=== PATIENT | female | born 1970 | race Caucasian/White ===

== ENCOUNTER 2016-05-16 12:27 | Outpatient (CLI) ==
--- NOTE | 2016-05-16 12:56 | DI ---
EXAM: RIGHT HIP, 2 VIEWS HISTORY: Hip pain. FINDINGS: Normal bone density. Hip joint has normal articular cartilage width. No fracture or dis location. Sacroiliac joints within normal limits. No specific soft tissue finding. IMPRESSION: Findings within normal limits radiographically.
--- NOTE | 2016-05-16 12:57 | DI ---
EXAM: Left hip two-view HISTORY: Pain COMPARISON: None FINDINGS: No fracture or dislocation. Small marginal osteophyte formation about the femoral head and small subchondral cystic change in the acetabulum.. Hip joint space is maintained Mild enthesop athy about the greater and lesser trochanter. IMPERSSION: 1. No fracture or dislocation 2. Mild osteoarthritis
== END 2016-05-16 12:28 | disposition home or self-care (01) ==
LOC: RAD 12:27
PROVIDERS: ATTEND Internal Medicine
DX: M25.551 Pain in right hip (principal); M25.552 Pain in left hip

== ENCOUNTER 2016-09-18 11:45 | Outpatient (CLI) ==
[2016-09-18 12:22] LABS: BASOPHILS % (AUTO) 0.4 % (0.0-3.0); EOSINOPHILS # (AUTO) 0.2 K/ul (0.0-0.7); EOSINOPHILS % (AUTO) 2.8 % (0.0-7.0); HEMATOCRIT 41.1 % (37.0-47.0); HEMOGLOBIN 13.7 g/dl (12.0-16.0); IMMATURE GRANULOCYTE % (AUTO) 0.1 % (0.0-5.0); LYMPHOCYTES # (AUTO) 1.8 K/uL (0.60-3.4); LYMPHOCYTES % (AUTO) 22.3 (10.0-50.0); MEAN CORPUSCULAR HEMOGLOBIN 28.7 pg (27.0-31.0); MEAN CORPUSCULAR HGB CONC 33.3 (31.8-35.4); MEAN CORPUSCULAR VOLUME 86.2 fl (81.0-99.0); MONOCYTES # (AUTO) 0.4 K/uL (0.4-2.0); MONOCYTES % (AUTO) 4.4 (0-10); NEUTROPHILS # (AUTO) 5.5 K/ul (2.0-6.9); PLATELET COUNT 300 10^3/uL (140-440); RED BLOOD COUNT 4.77 10^6/ul (4.20-5.40)
--- NOTE | 2016-09-18 12:38 | DI ---
EXAM: Five views of the right knee HISTORY: Right knee pain. COMPARISON: None FINDINGS: There is mild medial and lateral compartmental narrowing with osteophyte formation. The p atella femoral compartment demonstrates mild narrowing and osteophyte formation. There is no lytic or blastic lesion. There is no displaced fracture or dislocation. The soft tissues are unremarkabl e. 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
[2016-09-18 12:43] LABS: ALANINE AMINOTRANSFERASE 15 U/L (12-78); ALBUMIN/GLOBULIN RATIO 1.14; ALKALINE PHOSPHATASE 81 U/L (42-98); ANION GAP 9.7; ASPARTATE AMINO TRANSFERASE 18 U/L (15-37); BILIRUBIN,TOTAL 0.42 mg/dL (0.00-1.20); BLOOD UREA NITROGEN 11 mg/dL (7-18); BUN/CREATININE RATIO 11.82; CALCIUM 9.8 mg/dL (8.2-10.2); CARBON DIOXIDE 28 mmol/L (21-32); CHLORIDE 106 mmol/L (98-107); CREATININE 0.93 mg/dL (0.60-1.30); GLUCOSE 88 mg/dL (70-110); POTASSIUM 3.7 mmol/L (3.5-5.10); SODIUM 140 mmol/L (136-145); TOTAL PROTEIN 7.5 g/dL (6.4-8.2)
== END 2016-09-18 11:46 | disposition home or self-care (01) ==
LOC: RAD 11:45
PROVIDERS: ATTEND Emergency Medicine
DX: Z51.81 Encounter for therapeutic drug level monitoring (principal); Z79.899 Other long term (current) drug therapy; Z86.69 Personal history of other diseases of the nervous system and sense organs; M25.561 Pain in right knee
CPT/HCPCS: 36415; 80053; 80185; 85025

== ENCOUNTER 2016-09-19 13:56 | Outpatient (CLI) | payer OTHER ==
--- NOTE | 2016-09-19 15:33 | MRI ---
EXAM: MRI brain without IV contrast. DATE: 19 Sep 2016. HISTORY: Headaches, seizures. TECHNIQUE: Sagittal T1W, axial T2W, axial FLAIR, axial T1W, axial DWI, and coronal T2W GRE sequence s of the brain were obtained using 1.2 Izabel magnet. No IV contrast. COMPARISON: MRI brain 07/23/2015. FINDINGS: Right middle cranial fossa T2W bright, T1W dark, 5.3 x 4.1 x 3.5 cm surgical cavity is ob served. Evidence of previous anterior right temporal lobe, right hippocampal head, amygdala, right insular ribbon, and portion of the right external capsule (inferiorly) appears similar to previous M RI. The lateral ventricles, third ventricle, Sylvian fissures, and many cerebral sulci are mildly promi nent due to involutional change. No midline shift, mass effect or abnormal extra-axial fluid collect ion is apparent. No acute infarct, acute hemorrhage or neoplasm is identified. Small, confluent ri m of T2W/FLAIR hyperintensity is observed in the white matter abutting each lateral ventricle. Smal l number of 2-10 mm, T2W/FLAIR bright foci are scattered within the arroyo radiata, centrum semioval e and subcortical white matter similar to previous MRI. Region of right inferior frontal gyrus subc ortical white matter IR hyperintensity suggests old infarct with encephalomalacia. T2W bright, FLAI R/T1W dark in the right frontal lobe (near the anterior horn right lateral ventricle, right parietal lobe subcortical white matter (inferolaterally), left frontal centrum semiovale) are likely old inf arcts. The alejo - white matter differentiation is normal. The 7th/8th cranial nerve complexes, cere bellopontine angles, brainstem, and visible cervical spinal cord are normal. There is no cerebellar tonsillar ectopia. The pituitary gland is small in size. Corpus callosum is normal in size and co nfiguration. Right vertebral artery is dominant. Flow voids are present in the major intracranial arteries and in the dural venous sinuses. No aneurysm, AVM or dural venous sinus thrombosis is appa rent. No orbit abnormality is identified. A few inferior right mastoid air cells have T2W bright, T1W intermediate signal. Left mastoid air cells are unremarkable. There is no acute sinusitis. No neck mass or lymphadenopathy is detected. Slight thickening of the inner table of the frontal bone appears benign. No calvarial neoplasm or acute fracture is evident. IMPRESSIONS: 1. No acute infarct, hemorrhage, suspicious mass or hydrocephalus. 2. S/P anterior right temporal lobe resection. Stable surgical cavity. 3. Mild supratentorial small vessel disease. 4. 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 5. Benign hyperostosis frontalis interna (minor). 6. Minimal right mastoid air cell disease. 7. Small pituitary gland, no pituitary lesion.
== END 2016-09-19 13:57 | disposition home or self-care (01) ==
LOC: RAD 13:56
PROVIDERS: ATTEND Emergency Medicine
DX: R51 Headache (principal); Z86.69 Personal history of other diseases of the nervous system and sense organs

== ENCOUNTER 2017-05-14 12:00 | Outpatient (CLI) ==
--- NOTE | 2017-05-14 16:47 | MRI ---
EXAM: MRI left shoulder without contrast. HISTORY: Left shoulder pain. Decreased range of motion. Pain 3 weeks. No left shoulder surgery re ported. TECHNIQUE: Using a local coil on a high field strength magnet multiplanar multisequence magnet reson ance imaging was attempted of the left shoulder without intravenous or intra-articular gadolinium con trast. Overall examination is of limited diagnostic quality secondary to extensive motion degradatio n on multiple imaging sequences despite repeat imaging.. FINDINGS: I do not have prior radiographs of the left shoulder available for comparison at the time of this dictation. A Type I I acromion. Coracoacromial ligament/arch intact without thickening. There is a moderate to marked degree of left acromioclavicular joint degenerative arthrosis. Deltoid musculature within no rmal limit in signal intensity. Trace fluid subacromial/subdeltoid bursa. Muscle bulk of the rotator cuff shows fatty infiltration. Diffuse supraspinatus tendinosis over the insertion and critical zone. Poorly characterized partial thickness articular sided tearing. Loss o f cuff thickness at least 50%. There is some fluid-filled rim rent portion of tear over the insertio n measuring approximate 8 x 6 mm. Bursal sided fraying. Posterior intact infraspinatus tendon fibers as well as teres minor tendon fibers. Anterior intact subscapularis tendon fibers. The long head of the biceps tendon shows intact fibers located in expected position within the bicipital groove. The left humeral head within normal limit in morphology. Remodeling with some degenerative cyst form ation over the greater tuberosity. No left glenohumeral joint centered subchondral bone marrow edema or bone erosions. Mild left glenohumeral joint osteoarthrosis. Left glenohumeral joint effusion.. IMPRESSION: Examination of limited diagnostic quality secondary to extensive motion degradation on m ultiple imaging sequences despite repeat imaging. Moderate to marked left acromioclavicular joint degenerative arthrosis. Diffuse supraspinatus tendinosis over the insertion and critical zone with poorly characterized suspe cted partial thickness articular sided tearing and overall loss of cuff thickness at least 50%. Some fluid-filled rim rent portion of tear over the insertion measuring approximate 8 x 6 mm. Bursal devonte ed fraying. I do not see a definitive full-thickness tear component. Trace fluid subacromial/subdelt oid bursa may reflect an overlying degree bursitis and/or be sequela prior shoulder injection. A ful l-thickness communicating tear component could have this appearance. Mild left glenohumeral joint osteoarthrosis. Left glenohumeral joint effusion. Recommendation is obtainment and correlation with plain film radiographs of the left shoulder as none are available for comparison at the time of this dictation.
== END 2017-05-14 12:01 | disposition home or self-care (01) ==
LOC: RAD 12:00
PROVIDERS: ATTEND Internal Medicine
DX: M25.512 Pain in left shoulder (principal)

== ENCOUNTER 2017-07-27 11:01 | Outpatient (CLI) ==
--- NOTE | 2017-07-27 13:27 | MRI ---
EXAM: MRI of the right shoulder without contrast COMPARISON: None available. HISTORY: Right shoulder pain. No known injury. TECHNIQUE: Multiplanar noncontrast MR images of the right shoulder were acquired using a 1.5 Izabel m agnet. The submitted images are moderately limited by patient motion artifact and several sequences were repeated. FINDINGS: Marked supraspinatus and subscapularis as well as moderate infraspinatus tendinosis. Ther e is a near full-thickness articular surface tear of the anterior insertional fibers of the supraspin atus measuring 0.9 x 0.9 cm with some thin residual intact bursal surface fibers without a definite f ull-thickness tear. Near full-thickness tear of the distal subscapularis. Small amount of fluid in the subacromial/subdeltoid bursa. Limited assessment of the glenoid labrum on this non arthrographic, motion limited study. Hyperinten se signal throughout the posterosuperior labrum which may represent artifact though underlying tear i s not excluded. Moderate glenohumeral joint osteoarthrosis. There is a moderate sized glenohumeral joint effusion with synovitis and small loose bodies within the joint. The long head of the biceps is medially subluxed within its proximal bicipital groove segment with te ndinosis/partial tear and tenosynovitis. Marked hypertrophic degenerative changes of the acromioclavicular joint. No evidence of an os acromi jayna or abnormal widening of the acromioclavicular joint space. Mild diffuse muscle atrophy. Moderat e to severe atrophy of the teres minor. IMPRESSION: 1. Marked rotator cuff tendinosis. Near full-thickness tear of the insertional fibers of the supras pinatus and subscapularis without a discrete full-thickness tear or tendon retraction as described. 2. Minimal fluid in the subacromial/subdeltoid bursa. 3. Moderate hypertrophic degenerative changes of the acromioclavicular joint. Moderate degenerative changes of the glenohumeral joint. 4. Tendinosis/partial tear and tenosynovitis of the long head biceps with medial subluxation of the tendon within the bicipital groove. 5. Moderate glenohumeral joint effusion with nonspecific synovitis and small loose bodies. Joint as piration could be considered if clinically warranted. 6. Hyperintense signal involving the posterosuperior glenoid labrum which may be artifactual in natu re on this non arthrographic study though underlying labral tear is not excluded. Correlate clinical ly.
== END 2017-07-27 11:02 | disposition home or self-care (01) ==
LOC: RAD 11:01
PROVIDERS: ATTEND Internal Medicine
DX: M25.511 Pain in right shoulder (principal)

== ENCOUNTER 2017-08-04 10:00 | Outpatient (RCR) ==
--- NOTE | 2017-07-15 11:04 | RS.OPPTEV2 ---
Date of Note: 07/14/17 Visit #: 1 Date of Evaluation: 07/14/17 Payer Source: MEDICARE Surgery Performed?: No Treatment Diagnosis: incomplete tear of L rotator cuff History of Condition/Mechanism of Injury:: pt reports pain began in May 2017. pt did not have any definite injury that she is aware of. Prior Level of Function.....Patient was independent with: ADL's, Self Care, Caregiving, Ambulation/Mobility, Community Integration/Access Functional Limitations: Sleep, ADL's, Reaching, Pushing, Pulling, Lifting, Carrying Current Subjective/complaints:: pt states she has been having increased L shld pain since May 2017. 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 Treatment Side (optional): Left *Precautions: n/a Medical History Medical History: Arthritis, Cancer (brain cancer ) Medical History Comments:: R foot fx, R hand fx Surgical History Comments:: Brain surgery 1998 due to brain cancer, eye surgery 1987 Smoking Status: Never smoker Diagnostic Testing/Imaging:: MRI L shld: limited quality due to extensive motion degradation. Did show mod to marked L acromioclavicular joint deg arthrosis, supraspinatus tendinosis, partial thickness tear. Hx Home Medications: pt unsure of home medications Patient's Goals: decrease L shld pain. Pain Assessment - Pain Description Pain Location: L shld Pain Description: Aching Current Pain Intensity: 8/10 Other Comments regarding Pain:: pain increases with active ROM Functional Outcome Measure UE Functional Index: 38 (52%) - G Codes & Severity Modifier G Codes & Modifier: carrying, moving and handling objects current CK. carrying , moving and handling objects goal CI Source of G Code score: UE functional index Observation - Observation Posture: Forward Head, Rounded Shoulders, Increased Thoracic Kyphosis Handedness: Right Gait - Gait Pattern General Gait Pattern Observation: No Deviations/Normal General Range of Motion: RUE WFL's. BLE WFL's Muscle Strength: RUE 5/5. BLE 5/5 Shoulder ROM: Right WFL's Shoulder Muscle Strength: Right WFL's - Left Shoulder ROM Left Shoulder Flexion: 130 (AAROM) Left Shoulder Abduction: 120 (AAROM) Left Shoulder External Rotation: 42 (AAROM) Left Shoulder ROM Limitations: Soft Tissue Tightness, Muscle Weakness, Pain - Left Shoulder Strength Left Shoulder Flexion: 3 Fair Left Shoulder Extension: 3 Fair Left Shoulder Abduction: 3- Fair- Left Shoulder Adduction: 4- Good- Left Shoulder External Rotation: 3- Fair- Left Shoulder Internal Rotation: 3+ Fair+ - Special Tests Shoulder Empty Can (Supraspinatus) Test: Positive Left Palpation Palpation Findings: Tenderness, Trigger Point, Muscle Guarding Comments:: pt presents with tenderness, muscle guarding in area of biceps tendon , as well as in area of supraspinatus and medial border of scapula. Sensation - Sensation Right Upper Extremity: Intact/Normal Left Upper Extremity: Intact/Normal Right Lower Extremity: Intact/Normal Left Lower Extremity: Intact/Normal Balance - Sitting Balance Static Sitting Balance: Normal Dynamic Sitting Balance: Normal - Standing Balance Static Standing Balance: Normal Dynamic Standing Balance: Normal - Heat/Cryotherapy Treatment: Cryotherapy Comments:: L shld Interventions - Exercise/Activities/Manual Therapy Exercises/Activities: pt performed pendulum ex, scapular retraction, shld shrugs x 5-10 reps Manual Therapy: n/a HOME EXERCISE PROGRAM: pt given written HEP including pendulum ex, scapular retraction, shld shrugs. gently Upper trap stretch - Charges Timed Code Treatment Minutes: 48 Total Treatment Time: 60 Procedures billed for this date of service:: eval low cold pack EVALUATION COMPLEXITY LEVEL EVALUATION COMPLEXITY LEVEL: HISTORY: Low (OA, L ROT cuff tear), EXAM OF BODY SYSTEMS: Low (musc, other), CLINICAL PRESENTATION: Low (stable), CLINICAL DECISION MAKING: Medium Assessment Assessment: pt presents with L shld pain, with incomplete tear of L rotator cuff. 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 Goal to be met by: 07/31/17 Goal #2: Improved UE functional index improved to 65/80 Goal to be met by: 07/31/17 Goal #3: pt with improved L shld ROM WFL's with decreased pain Goal to be met by: 07/31/17 Goal #4: pt report ability to perform ADL's and household activites independently Goal to be met by: 07/31/17 Plan - Treatment to be Provided Procedures: Therapeutic Exercises, Therapeutic Activity, Manual Therapy, Patient Education Modalities: Ultrasound/Phonophoresis (pulsed US only), Cryotherapy, Hot Packs - Treatment Plan Frequency: 2 X week Duration: 3 weeks ORDER # VISITS AND/OR THROUGH DATE: 07/31/17 - Treatment Code (1) Incomplete tear of left rotator cuff Code(s): M75.112 - INCOMPLETE ROTATR-CUFF TEAR/RUPTR OF L SHOULDER, NOT TRAUMA (2) Pain in joint, shoulder region Code(s): M25.519 - PAIN IN UNSPECIFIED SHOULDER Qualifiers: Laterality: left Qualified Code(s): M25.512 - Pain in left shoulder (3) Muscle weakness Code(s): M62.81 - MUSCLE WEAKNESS (GENERALIZED)
--- NOTE | 2017-07-17 15:24 | RS.OPPTDN ---
Subjective Date of Note: 07/17/17 Visit #: 2 Date of Evaluation: 07/14/17 Payer Source: MEDICARE Treatment Diagnosis: incomplete tear of L rotator cuff Current Subjective/complaints:: Patient c/c is R shoulder pain right now. She says she wants us to work on it, but explained she was only evaluated for the L. She says her L shoulder is not really hurting unless she reaches up or grooming her hair. She reports obtaining an appt with Dr. Garcia while here for treatment on July 20 to address the R shoulder. *Precautions: n/a Pain Assessment - Pain Description Pain Location: Mostly the R shoulder, but L shoulder with actions above head and along the lateral portion of the L upper arm. - Treatment Modality: Ultrasound Parameters/Method Applied: continuous @ 1.5 w/cm2 x 10 mins to the L shoulder and along mid deltoid Patient Position: Sitting - Heat/Cryotherapy Treatment: Hot Pack (15 mins to the L shoulder prior to u/s, cold pack x 10 mins after therex in sitting) Interventions - Exercise/Activities/Manual Therapy Exercises/Activities: PROM for the L shoulder all dir. Manual isometrics 2x5 for shoulder dir. 1# wand for bilateral shoulder flexion and chest presses, shoulder shrugs and scap adduction at EOB. Instructed patient on how to make cold pack for home as she admitted forgetting the measurement of water to alcohol. Discussed HEP as well. Total minutes of Exercise: 22 Manual Therapy: n/a HOME EXERCISE PROGRAM: pt given written HEP including pendulum ex, scapular retraction, shld shrugs. gently Upper trap stretch - Charges Timed Code Treatment Minutes: 32 Total Treatment Time: 67 Procedures billed for this date of service:: hp, u/s, ex Assessment: Patient experiencing only mild discomfort to the L shouler, but c/c is R shoulder at this time. It is probably associated with patient compensating for the L shoulder pain and now using the R more allowing the L to be less mobile. She c/o severe R shoulder pain and needing to see the MD and requests therapy for it. Patient does guard throughout PROM to the L UE today as well as difficulty with all isometrics limited by weakness and pain. Patient may benefit from receiving treatment to the L UE to improve ROM, pain, and strength. Patient Education: Body/Joint mechanics, Home Exercise Program, Education of Plan of Care Short Term Goals Goal #1: pt rate pain <6/10 L shld Goal to be met by: 07/24/17 Goal #2: Improved ROM L shld flex 140, abd 130, ER, 45 Goal to be met by: 07/24/17 Goal #3: pt able to put jacket on without assist Goal to be met by: 07/24/17 (10% limitation (soft tissue)) Goal #4: . Residential Goals Goal #1: pt independent with HEP. Goal to be met by: 07/31/17 Goal #2: Improved UE functional index improved to 65/80 Goal to be met by: 07/31/17 Goal #3: pt with improved L shld ROM WFL's with decreased pain Goal to be met by: 07/31/17 Goal #4: pt report ability to perform ADL's and household activites independently Goal to be met by: 07/31/17 Plan PLAN OF CARE EXPIRES ON:: 07/31/17 ORDER # VISITS AND/OR THROUGH DATE: 07/31/17 PLAN: Patient to continue for modalities and therex
--- NOTE | 2017-07-27 13:27 | RS.CXNS ---
Date of scheduled appointment: 07/27/17 Type: No Show Reason for Cancel/NS: Patient believes that her appt is tomorrow and did not show today. We have made attempts to contact her to reschedule her appt.
--- NOTE | 2017-08-03 14:21 | RS.OPPTDN ---
Subjective Date of Note: 08/03/17 Visit #: 4 Date of Evaluation: 07/14/17 Payer Source: MEDICARE Treatment Diagnosis: incomplete tear of L rotator cuff Current Subjective/complaints:: Patient says her L shoulder pain is elevated right now. She says her pain goes from the L to the R shoulder and says she is using ice at home for both. She reports performing HEP to the R shoulder as well. *Precautions: n/a Pain Assessment - Pain Description Pain Location: R and L shoulder (generally throughout the shoulder including posteriorally) - Treatment Modality: Ultrasound Parameters/Method Applied: Continuous @ 1.5 w/cm2 x 6 mins to the L shoulder ( ant/lat/post), then ending with pulsed @ 20% 0.6 w/cm2 x 5 mins Patient Position: Sitting - Heat/Cryotherapy Treatment: Hot Pack (15 mins to the L shoulder in sitting) Interventions - Exercise/Activities/Manual Therapy Exercises/Activities: PROM for the L shoulder all dir. Manual isometrics 2x5 for shoulder dir. 1# wand for bilateral shoulder flexion and chest presses in sitting x 8, shoulder shrugs and scap adduction at EOB. Red tband for postural pullbacks x 10. Patient ended with pulleys x 10 reps. Reviewed HeP and education on diagnosis and POC. Discussed working on the R shoulder possibly after L is completed. Total minutes of Exercise: 22 Manual Therapy: n/a HOME EXERCISE PROGRAM: pt given written HEP including pendulum ex, scapular retraction, shld shrugs. gently Upper trap stretch - Charges Timed Code Treatment Minutes: 33 Total Treatment Time: 48 Procedures billed for this date of service:: hp, u/s, ex Assessment: Patient demo full passive flexion and WFL for ER/IR/ABD, but limited herself due to pain level. She is able to provide only slight resistance in all motions as above due to pain level and patient drawing back, but able to yaneli resisted shoulder flexion. Pain varies from L shoulder to the R shoulder depending on activity. Patient Education: Education of diagnosis, Home Exercise Program, Education of Plan of Care Patient demonstrates compliance with HEP?: Yes Short Term Goals Goal #1: pt rate pain <6/10 L shld Goal to be met by: 07/24/17 Goal #2: Improved ROM L shld flex 140, abd 130, ER, 45 Goal to be met by: 07/24/17 Progress towards Goal:: Progressing Goal #3: pt able to put jacket on without assist Goal to be met by: 07/24/17 (10% limitation (soft tissue)) Progress towards Goal:: Progressing Comments:: Patient required assistance at last session, but not today Goal #4: . Longterm Goals Goal #1: pt independent with HEP. Goal to be met by: 07/31/17 Progress towards goal: Progressing Goal #2: Improved UE functional index improved to 65/80 Goal to be met by: 07/31/17 Goal #3: pt with improved L shld ROM WFL's with decreased pain Goal to be met by: 07/31/17 Goal #4: pt report ability to perform ADL's and household activites independently Goal to be met by: 07/31/17 Plan PLAN OF CARE EXPIRES ON:: 07/31/17 ORDER # VISITS AND/OR THROUGH DATE: 07/31/17 PLAN: Patient to continue x 2 more session
--- NOTE | 2017-08-03 14:24 | RS.OPPTDN ---
Subjective Date of Note: 07/29/17 Visit #: 3 Date of Evaluation: 07/14/17 Payer Source: MEDICARE Treatment Diagnosis: incomplete tear of L rotator cuff Current Subjective/complaints:: Patient c/o R shoulder pain today, which is more than the L. She says she can hardly move the R arm, especially reaching. She assumes she will have therapy for the R shoulder today, but explained her order is only for the L. She has not received results from her MRI for the R. *Precautions: n/a Pain Assessment - Pain Description Pain Location: R shoulder more than L - Treatment Modality: Ultrasound Parameters/Method Applied: Continuous @ 1.5 w/cm2 x 8 mins to the L posterior shoulder and mid deltoid. Pulsed @ 0.6 w/cm2 20% x 3 mins to the same area. Patient Position: Sitting - Heat/Cryotherapy Treatment: Hot Pack (15 mins to the L shoulder in sitting) Interventions - Exercise/Activities/Manual Therapy Exercises/Activities: PROM for the L shoulder all dir. Manual isometrics 2x5 for shoulder dir. 1# wand for bilateral shoulder flexion and chest presses in supine x 8, shoulder shrugs and scap adduction at EOB. Patient ended with pulleys x 10 reps. Reviewed HeP and education on diagnosis and POC. Encouraged heat/ice. Total minutes of Exercise: 18 Manual Therapy: n/a HOME EXERCISE PROGRAM: pt given written HEP including pendulum ex, scapular retraction, shld shrugs. gently Upper trap stretch - Charges Timed Code Treatment Minutes: 26 Total Treatment Time: 46 Procedures billed for this date of service:: hp, u/s, ex Assessment: Patient with moderate pain level to both shoulders and c/c is R shoulder presently. Patient explained we need to work on L shoulder (for her current order) then may consider discussing with her MD about adding the R. Patient yaneli PROM limiting herself with IR/ER and ABD at times and guarding with eccentric flexion. Patient has difficulty yaneli shoulder hanging at her side and with pulleys today. Patient Education: Body/Joint mechanics, Home Exercise Program, Education of Plan of Care Patient demonstrates compliance with HEP?: Yes Short Term Goals Goal #1: pt rate pain <6/10 L shld Goal to be met by: 07/24/17 Goal #2: Improved ROM L shld flex 140, abd 130, ER, 45 Goal to be met by: 07/24/17 Progress towards Goal:: Progressing Goal #3: pt able to put jacket on without assist Goal to be met by: 07/24/17 (10% limitation (soft tissue)) Goal #4: . Senior Living Goals Goal #1: pt independent with HEP. Goal to be met by: 07/31/17 Progress towards goal: Progressing Goal #2: Improved UE functional index improved to 65/80 Goal to be met by: 07/31/17 Goal #3: pt with improved L shld ROM WFL's with decreased pain Goal to be met by: 07/31/17 Goal #4: pt report ability to perform ADL's and household activites independently Goal to be met by: 07/31/17 Plan PLAN OF CARE EXPIRES ON:: 07/31/17 ORDER # VISITS AND/OR THROUGH DATE: 07/31/17 PLAN: Continue x 3 more sessions per order
--- NOTE | 2017-08-04 12:13 | RS.OPPTDN ---
Subjective Date of Note: 08/04/17 Visit #: 5 Date of Evaluation: 07/14/17 Payer Source: MEDICARE Treatment Diagnosis: incomplete tear of L rotator cuff Current Subjective/complaints:: Patient c/o pain to both shoulders today, but varies and is goes back and forth between the two. She says she has purchased a heat wrap for both shoulders and is using ice to both as well. She says she does not feel that her L shoulder is improving. She admits needing someone to shut her microwave door because she cannot do it with the L arm. *Precautions: n/a Pain Assessment - Pain Description Pain Location: both shoulders ant/pos - Treatment Modality: Ultrasound Parameters/Method Applied: Continuous @ 5 mins 1.5 w/cm2, Pulsed 20% @ 0.6 w/ cm2 x 5 mins to the L shoulder Patient Position: Sitting - Heat/Cryotherapy Treatment: Hot Pack (15 mins to the L shoulder in sitting) Interventions - Exercise/Activities/Manual Therapy Exercises/Activities: PROM for the L shoulder all dir. Manual isometrics 2x5 for shoulder dir except for extension due to patient c/o pain. 1# wand for bilateral shoulder flexion and chest presses in supine x 8, shoulder shrugs and scap adduction at EOB. Red tband for scap retraction x 10. Patient ended with pulleys x 10 reps. Reviewed HeP and education on diagnosis and POC. Reassessed UE Functional Index. Total minutes of Exercise: 18 Manual Therapy: n/a HOME EXERCISE PROGRAM: pt given written HEP including pendulum ex, scapular retraction, shld shrugs. gently Upper trap stretch - Charges Timed Code Treatment Minutes: 28 Total Treatment Time: 43 Procedures billed for this date of service:: hp, u/s, ex Assessment: Patient's reassessment improved from 38/80 to 55/80, however, she voices intermittent improvement that moves from the L to the R shoulder. She asks often about working on the R shoulder too, but she has not seen the ortho regarding the R shoulder. She demo improved Active and PROM for the L shoulder today to WFL, but this also varies on her pain level. Patient Education: Education of diagnosis, Body/Joint mechanics, Home Exercise Program, Education of Plan of Care Patient demonstrates compliance with HEP?: Yes Short Term Goals Goal #1: pt rate pain <6/10 L shld Goal to be met by: 07/24/17 Progress towards Goal:: Met Comments:: on average Goal #2: Improved ROM L shld flex 140, abd 130, ER, 45 Goal to be met by: 07/24/17 Progress towards Goal:: Partially Met Comments:: ABD limited to 120 today, ER to 50 Goal #3: pt able to put jacket on without assist Goal to be met by: 07/24/17 (10% limitation (soft tissue)) Progress towards Goal:: Progressing Comments:: but also limited because of the R shoulder 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 Goal to be met by: 08/04/17 Progress towards goal: Met Goal #2: Improved UE functional index improved to 65/80 Goal to be met by: 08/04/17 Progress towards goal: Progressing Comments: 55 Goal #3: pt with improved L shld ROM WFL's with decreased pain Goal to be met by: 08/04/17 Progress towards goal: Progressing Goal #4: pt report ability to perform ADL's and household activites independently Goal to be met by: 08/04/17 Progress towards goal: Progressing Plan PLAN OF CARE EXPIRES ON:: 08/04/17 ORDER # VISITS AND/OR THROUGH DATE: 08/04/17 PLAN: Patient has completed order. Patient wants to follow up with ortho regarding the R shoulder now.
== END 2017-08-08 ==
PROVIDERS: ATTEND Orthopaedic Surgery
DX: M75.112 Incomplete rotator cuff tear or rupture of left shoulder, not specified as traumatic (principal)

== ENCOUNTER 2017-10-08 10:00 | Outpatient (RCR) ==
--- NOTE | 2017-09-23 09:13 | RS.OPPTEV2 ---
Date of Note: 09/22/17 Visit #: 1 Date of Evaluation: 09/22/17 Payer Source: MEDICARE Surgery Performed?: No Treatment Diagnosis: Right shoulder pain, shoulder stiffness, RTC involvement History of Condition/Mechanism of Injury:: Patient reports having right shoulder pain for several months. States she has not had an injury. States her left shoulder hurts as well. Prior Level of Function.....Patient was independent with: ADL's, Self Care, Caregiving, Ambulation/Mobility, Community Integration/Access Functional Limitations: Sleep, Self Care, ADL's, Reaching, Pushing, Pulling, Lifting, Carrying Current Subjective/complaints:: Patient reports right shoulder pain at rest or with movement. States the shoulder hurts when it hangs at her side when walking. Reports difficulty fastening her seatbelt. She received an injection recently and states it helped a little, but has worn off. Reports difficulty performing selfcare and ADL's due to limited shoulder AROM and pain. She attended therapy earlier this year for the left shoulder. States the right shoulder has always been worse. Betzaida states she did not remember to bring the disc with her MRI for her appointment with the [facility]opaedic clinic when she was seen to address the right shoulder pain. Treatment Side (optional): Right *Precautions: n/a Medical History Medical History: Arthritis, Cancer (brain cancer ) Medical History Comments:: R foot fx, R hand fx Surgical History Comments:: Brain surgery 1998 due to brain cancer, eye surgery 1987 Smoking Status: Never smoker Diagnostic Testing/Imaging:: Report from MRI of right shoulder on 07/27/17 is lengthy and shows many issues with OA, tears of the supraspinatus and subscapularis tendons and involvement of the long head of the biceps tendon. The full report is in the EMR. Hx Home Medications: Requip,aspirin, Zonegran, ferrous sulfate, levothyroxin, simvastatin Patient's Goals: Her goal is to get some relief of pain in the right shoulder. Pain Assessment - Pain Description Pain Location: right shoulder Current Pain Intensity: 9/10 Worst Pain Intensity: 9/10 Functional Outcome Measure - G Codes & Severity Modifier G Codes & Modifier: selfcare current CL. selfcare goal CK Source of G Code score: Based on patient's presentation in the department. Patient with difficulty scoring the UE FOM, even with assistance, due to mild cognitive impairment. Observation - Observation Posture: Forward Head, Rounded Shoulders, Increased Thoracic Kyphosis Handedness: Ambidextrous - Left Shoulder ROM Comments: Left shoulder AROM: flexion 110 degrees, ABD 85 degrees, ER WFL's, IR 75% of functional range with pain. - Right Shoulder ROM Comments: Right shoulder AROM: flexion 100 degrees, abduction 80 degrees, ER 52 degrees, IR 40 degrees. Reports pain and shows facial grimacing with all right shoulder ROM. PROM just as limited into flexion. Tolerates PROM into abduction to 95-100 degrees. ER and IR PROM just as limited and painful as AROM. - Left Shoulder Strength Comments: 4-/5 in available range throughout left shoulder. - Right Shoulder Strength Comments: 3+ to 4-/5 throughout right shoulder, with exception of adduction 4+/ 5. Pain with all MMT. - Special Tests Shoulder Empty Can (Supraspinatus) Test: Positive Right Shoulder Speed's Sign Test: Positive Right Shoulder Sampson-Lang Impingement Test: Positive Right Palpation Comments:: Patient reports tenderness throughout the right shoulder. She withdrawals from touch when palpating the posterior aspect of the right shoulder. Also reports tenderness over the long head of the biceps tendon. Sensation - Sensation Right Upper Extremity: Intact/Normal Left Upper Extremity: Intact/Normal - Treatment Modality: Ultrasound Parameters/Method Applied: 1.5 w/cm2 X 10 mins continuous to the right shoulder. Patient Position: Sitting Interventions - Exercise/Activities/Manual Therapy Exercises/Activities: Discussed pendulum exercises. Advised her to avoid reaching over shoulder height and to also avoid lifting anything heavy with the right UE. Manual Therapy: n/a HOME EXERCISE PROGRAM: pendulum - Charges Timed Code Treatment Minutes: 10 mins Total Treatment Time: 48 mins Procedures billed for this date of service:: RADHA Romero, EVALUATION COMPLEXITY LEVEL EVALUATION COMPLEXITY LEVEL: HISTORY: Medium (Left shoulder limitations, HX brain surgery with some cognitive impairments), EXAM OF BODY SYSTEMS: Low ( Limited ability with selfcare and ADL's.), CLINICAL PRESENTATION: Medium, CLINICAL DECISION MAKING: Medium Assessment Assessment: Patient presents to therapy with a diagnosis of an incomplete RTC tear of the right shoulder. She reports right shoulder pain and demonstrates significant limitations in AROM and strength. Because of this, she is limited in her ability to perform selfcare and ADL's. Her MRI showed a variety of issues and the goal of therapy may just be to gain some relief of pain, education, and gain a little more functional AROM. Patient Education: Education of diagnosis, Body/Joint mechanics, Home Exercise Program, Activity Modification, Education of Plan of Care Rehab Potential: Fair (Right shoulder with extensive RTC and biceps tendon issues.) Short Term Goals Goal #1: Right shoulder pain decreased to <7/10. Goal to be met by: 10/06/17 Goal #2: Right shoulder flexion AROM to 90 degrees. Goal to be met by: 10/06/17 Goal #3: Pt independent and compliant in HEP. 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 Goal to be met by: 10/17/17 Goal #2: Improved UE functional index improved to equal to/less than 59% impairment. Goal to be met by: 10/17/17 Goal #3: Pt to sleep through the night without interruption from R shoulder pain. Goal to be met by: 10/17/17 Goal #4: Right shoulder ROM WFL's to perform selfcare and ADL's. Goal to be met by: 10/17/17 Plan - Treatment to be Provided Procedures: Therapeutic Exercises, Therapeutic Activity, Manual Therapy, Patient Education Modalities: Ultrasound/Phonophoresis (pulsed US only), Cryotherapy, Hot Packs - Treatment Plan Frequency: 2 X week Duration: 3 weeks ORDER # VISITS AND/OR THROUGH DATE: 10/17/17 - Treatment Code (1) Shoulder pain Code(s): M25.519 - PAIN IN UNSPECIFIED SHOULDER Qualifiers: Chronicity: acute Laterality: right Qualified Code(s): M25.511 - Pain in right shoulder (2) Shoulder stiffness Qualifiers: Laterality: right Qualified Code(s): M25.611 - Stiffness of right shoulder , not elsewhere classified (3) Incomplete tear of right rotator cuff Code(s): M75.111 - INCOMPLETE ROTATR-CUFF TEAR/RUPTR OF R SHOULDER, NOT TRAUMA Comments: M75.111
--- NOTE | 2017-09-24 11:01 | RS.OPPTDN ---
Subjective Date of Note: 09/24/17 Visit #: 2 Date of Evaluation: 09/22/17 Payer Source: MEDICARE Treatment Diagnosis: Right shoulder pain, shoulder stiffness, RTC involvement Current Subjective/complaints:: The R shoulder pain is dependent upon the position of the R UE. *Precautions: n/a Pain Assessment - Pain Description Pain Location: R shoulder Pain Description: Throbbing, Aching Current Pain Intensity: 5 at rest Worst Pain Intensity: 9 with AROM in short ROM - Treatment Modality: Ultrasound Parameters/Method Applied: Pulsed US x 10 mins. to R shoulder @ 1.0 w/cm 2 . Patient Position: Sitting - Heat/Cryotherapy Treatment: Hot Pack (20 mins. prior to US) Interventions - Exercise/Activities/Manual Therapy Exercises/Activities: 20 mins. isometrics,PROM for shoulder elevation to 90 ,IR /ER .Shoulder shrugs /circles forward/backward. Total minutes of Exercise: 20 Manual Therapy: n/a Total minutes of Manual Therapy: 0 HOME EXERCISE PROGRAM: pendulum ,GENTLE isometrics - Charges Timed Code Treatment Minutes: 30 Total Treatment Time: 50 Procedures billed for this date of service:: hp,US,ex Assessment: Patient has elevated pain with attempting shoulder elevation, crepitus present with pasive rotation .Cautioned patient to avoid strenuous tasks using the R UE . Patient Education: Education of diagnosis, Body/Joint mechanics, Home Exercise Program, Home Safety, Activity Modification, Education of Plan of Care Short Term Goals Goal #1: Right shoulder pain decreased to <7/10. Goal to be met by: 10/06/17 Goal #2: Right shoulder flexion AROM to 90 degrees. Goal to be met by: 10/06/17 Goal #3: Pt independent and compliant in HEP. Goal to be met by: 10/06/17 Goal #4: . Nursing Home Goals Goal #1: Pt knows HEP and to continue ex's to maintain functional level at D/C. Goal to be met by: 10/17/17 Goal #2: Improved UE functional index improved to equal to/less than 59% impairment. Goal to be met by: 10/17/17 Goal #3: Pt to sleep through the night without interruption from R shoulder pain. Goal to be met by: 10/17/17 Goal #4: Right shoulder ROM WFL's to perform selfcare and ADL's. Goal to be met by: 10/17/17 Plan PLAN OF CARE EXPIRES ON:: 10/17/17 ORDER # VISITS AND/OR THROUGH DATE: 10/17/17 PLAN: Cont PT to decrease R shoulder pain ,improve ability for ADL's.
--- NOTE | 2017-09-29 12:00 | RS.OPPTDN ---
Subjective Date of Note: 09/29/17 Visit #: 3 Date of Evaluation: 09/22/17 Payer Source: MEDICARE Treatment Diagnosis: Right shoulder pain, shoulder stiffness, RTC involvement Current Subjective/complaints:: Patient reports her pain is the same today in the R shoulder.She aggravated the R shoulder by pulling herself up into a truck.Reminded patient to not use the R UE for strenuous tasks at this time , due to instability ni the R shoulder. *Precautions: n/a Pain Assessment - Pain Description Pain Location: R shoulder Pain Description: Sharp, Dull, Aching Current Pain Intensity: not rated Other Comments regarding Pain:: dependent upon position of the R UE - Treatment Modality: Ultrasound Parameters/Method Applied: 10 mins. ,pulsed (50 % ) @ 1.0 w/cm2 to R shoulder. Patient Position: Sitting - Heat/Cryotherapy Treatment: Hot Pack (20 mins.prior to US) Interventions - Exercise/Activities/Manual Therapy Exercises/Activities: 20 mins. ,PROM to AAROM for shoulder elevation to 90 ,IR/ ER,abduction .Shoulder shrugs /circles forward/backward.Ended session with pendulum exercises. Total minutes of Exercise: 20 Manual Therapy: n/a Total minutes of Manual Therapy: 0 HOME EXERCISE PROGRAM: pendulum ,GENTLE isometrics each direction - Charges Timed Code Treatment Minutes: 30 Total Treatment Time: 50 Procedures billed for this date of service:: hp,US,ex1 Assessment: Patient tolerates passive motion today with less muscle guarding present.She has sharp,intermittent pain with AAROM,crepitus noted with elevation to approx. 90 degrees,and is also present with returning to rest position .We reiewed safety precautions to protect the R shoulder. Patient Education: Education of diagnosis, Body/Joint mechanics, Home Exercise Program, Home Safety, Activity Modification, Education of Plan of Care Short Term Goals Goal #1: Right shoulder pain decreased to <7/10. Goal to be met by: 10/06/17 Goal #2: Right shoulder flexion AROM to 90 degrees. Goal to be met by: 10/06/17 Goal #3: Pt independent and compliant in HEP. Goal to be met by: 10/06/17 Progress towards Goal:: Progressing Goal #4: . Senior Care Goals Goal #1: Pt knows HEP and to continue ex's to maintain functional level at D/C. Goal to be met by: 10/17/17 Progress towards goal: Progressing Goal #2: Improved UE functional index improved to equal to/less than 59% impairment. Goal to be met by: 10/17/17 Goal #3: Pt to sleep through the night without interruption from R shoulder pain. Goal to be met by: 10/17/17 Progress towards goal: Progressing Goal #4: Right shoulder ROM WFL's to perform selfcare and ADL's. Goal to be met by: 10/17/17 Plan PLAN OF CARE EXPIRES ON:: 10/17/17 ORDER # VISITS AND/OR THROUGH DATE: 10/17/17 PLAN: Continue PT to reduce pain , improve muscle tone in R shoulder for stability.
--- NOTE | 2017-10-01 11:24 | RS.OPPTDN ---
Subjective Date of Note: 10/01/17 Visit #: 4 Date of Evaluation: 09/22/17 Payer Source: MEDICARE Treatment Diagnosis: Right shoulder pain, shoulder stiffness, RTC involvement Current Subjective/complaints:: Reports the shoulder aches at rest,but has sharp pain with active motion. *Precautions: n/a Pain Assessment - Pain Description Pain Location: R shoulder Pain Description: Sharp, Dull, Aching Current Pain Intensity: not rated - Treatment Modality: Ultrasound Parameters/Method Applied: 10 mins. to R shoulder,pulsed mode (50%) , @1.0 w/ cm2. Patient Position: Sitting - Heat/Cryotherapy Treatment: Hot Pack (20 mins. prior to US and exercises) Interventions - Exercise/Activities/Manual Therapy Exercises/Activities: 20 mins. ,PROM to AAROM for R shoulder,beginning with 1 # wand exercises in sitting doing shoulder elevation to ~ 95 degrees x 10 reps , seated chest press x 10 in shortened ROM .Passive ER and IR with R shoulder in abduction @ 45 degrees. Total minutes of Exercise: 20 Manual Therapy: n/a HOME EXERCISE PROGRAM: pendulum ,GENTLE isometrics each direction - Charges Timed Code Treatment Minutes: 30 Total Treatment Time: 50 Procedures billed for this date of service:: hp,US,ex 1 Assessment: Patient tolerates the wand exercises better as it gives more stability with AROM.She fatigues easily and reports aching as the exercises progress.PROM for ER is limited with significant muscle guarding due to crepitus and pain .We discussed to not force any motion that causes pain.She tends to shrug the R shoulder more as she attempts shoulder flexion.We reviewed the precautions ,avoid all heavy lifting tasls. Patient Education: Education of diagnosis, Body/Joint mechanics, Home Exercise Program, Home Safety, Activity Modification, Education of Plan of Care Short Term Goals Goal #1: Right shoulder pain decreased to <7/10. Goal to be met by: 10/06/17 Progress towards Goal:: Progressing Comments:: better at rest or with use of wand for exercises (AAROM ) Goal #2: Right shoulder flexion AROM to 90 degrees. Goal to be met by: 10/06/17 Progress towards Goal:: Progressing Goal #3: Pt independent and compliant in HEP. Goal to be met by: 10/06/17 Progress towards Goal:: Progressing Goal #4: . Nursing Home Goals Goal #1: Pt knows HEP and to continue ex's to maintain functional level at D/C. Goal to be met by: 10/17/17 Progress towards goal: Progressing Goal #2: Improved UE functional index improved to equal to/less than 59% impairment. Goal to be met by: 10/17/17 Goal #3: Pt to sleep through the night without interruption from R shoulder pain. Goal to be met by: 10/17/17 Progress towards goal: Progressing Goal #4: Right shoulder ROM WFL's to perform selfcare and ADL's. Goal to be met by: 10/17/17 Plan PLAN OF CARE EXPIRES ON:: 10/17/17 ORDER # VISITS AND/OR THROUGH DATE: 10/17/17 PLAN: Continue skilled PT to educate the patient for joint protection ,decrease the pain for safer ADL's.
--- NOTE | 2017-10-06 10:56 | RS.OPPTDN ---
Subjective Date of Note: 10/06/17 Visit #: 5 Date of Evaluation: 09/22/17 Payer Source: MEDICARE Treatment Diagnosis: Right shoulder pain, shoulder stiffness, RTC involvement Current Subjective/complaints:: Reports the R shoulder feels better today ,no pain at this time.She is able to demo reaching overhead today with less difficulty. *Precautions: n/a Pain Assessment - Pain Description Pain Location: R shoulder Pain Description: Dull, Aching, Chronic Current Pain Intensity: 0 Worst Pain Intensity: not rated today - Treatment Modality: Ultrasound Parameters/Method Applied: 10 mins. pulsed US to R shoulder @ 1.0 w/cm2 . Patient Position: Sitting (20 mins. prior to US and exercises) - Heat/Cryotherapy Treatment: Hot Pack (20 mis. prior to US and exercises) Interventions - Exercise/Activities/Manual Therapy Exercises/Activities: 25 mins. ,PROM to AAROM for R shoulder,beginning with 1 # wand exercises in sitting doing shoulder elevation to 105 degrees,2 sets x 10 reps ,seated chest press 2 x 10 in shortened ROM .Active ER and IR with R shoulder in neutral position,using wand to assist. Total minutes of Exercise: 25 Manual Therapy: n/a Total minutes of Manual Therapy: 0 HOME EXERCISE PROGRAM: pendulum ,GENTLE isometrics each direction,AAROM using wand for rowing ,shoulder elevation ,IR/ER - Charges Timed Code Treatment Minutes: 35 Total Treatment Time: 55 Procedures billed for this date of service:: hp,US,ex 2 Assessment: Crepitus present with each shoulder motion today ,but less guarded, less sharp pain reported.Reminded patient to avoid heavy lifting,continue HEP in PAIN FREE ROM. Patient Education: Education of diagnosis, Body/Joint mechanics, Home Exercise Program, Home Safety, Activity Modification, Education of Plan of Care Short Term Goals Goal #1: Right shoulder pain decreased to <7/10. Goal to be met by: 10/06/17 Progress towards Goal:: Partially Met Goal #2: Right shoulder flexion AROM to 90 degrees. Goal to be met by: 10/06/17 (inconsistent at this bindu\e) Progress towards Goal:: Partially Met Goal #3: Pt independent and compliant in HEP. Goal to be met by: 10/06/17 Progress towards Goal:: Progressing Goal #4: . Long-Term Goals Goal #1: Pt knows HEP and to continue ex's to maintain functional level at D/C. Goal to be met by: 10/17/17 Progress towards goal: Progressing Goal #2: Improved UE functional index improved to equal to/less than 59% impairment. Goal to be met by: 10/17/17 Goal #3: Pt to sleep through the night without interruption from R shoulder pain. Goal to be met by: 10/17/17 Progress towards goal: Progressing Goal #4: Right shoulder ROM WFL's to perform selfcare and ADL's. Goal to be met by: 10/17/17 Progress towards goal: Progressing Plan PLAN OF CARE EXPIRES ON:: 10/17/17 ORDER # VISITS AND/OR THROUGH DATE: 10/17/17 PLAN: Continue PT to reduce /eliminate R shoulder pain ,strengthen for joint stability.
--- NOTE | 2017-10-08 10:31 | RS.OPPTDN ---
Subjective Date of Note: 10/08/17 Visit #: 6 Date of Evaluation: 09/22/17 Payer Source: MEDICARE Treatment Diagnosis: Right shoulder pain, shoulder stiffness, RTC involvement Current Subjective/complaints:: Patient reports less soreness and pain at rest, but still painful with active motion.She is aware of D/C plan today due to no significant change. *Precautions: n/a Pain Assessment - Pain Description Pain Location: R shoulder Pain Description: Sharp, Dull, Aching Pain Description: sharp with AROM Current Pain Intensity: 4-5 actively Worst Pain Intensity: 8 - Treatment Modality: Ultrasound Parameters/Method Applied: 10 mins. pulsed 50 % to R shoulder @ 1.o w/cm2. Patient Position: Sitting - Heat/Cryotherapy Treatment: Hot Pack (20 mins. prior to US and exercise) Interventions - Exercise/Activities/Manual Therapy Exercises/Activities: 20 mins. ,PROM to AAROM for R shoulder,all directions, HEP and precautions reviewed ,avoid heavy lifting with the R UE. Total minutes of Exercise: 20 Manual Therapy: n/a HOME EXERCISE PROGRAM: pendulum ,GENTLE isometrics each direction,AAROM using wand for rowing ,shoulder elevation ,IR/ER - Charges Timed Code Treatment Minutes: 30 Total Treatment Time: 50 Procedures billed for this date of service:: hp,US,ex Assessment: No significant change since evaluation .She is aware of D/C plan today.Reminded patient to avoid heavy lifting with the R UE due to joint instability.She does report less pain at rest,but no change with AROM. Patient Education: Education of diagnosis, Body/Joint mechanics, Home Exercise Program, Home Safety, Activity Modification, Education of Plan of Care Patient demonstrates compliance with HEP?: Yes Short Term Goals Goal #1: Right shoulder pain decreased to <7/10. Goal to be met by: 10/06/17 Progress towards Goal:: Partially Met Goal #2: Right shoulder flexion AROM to 90 degrees. Goal to be met by: 10/06/17 Progress towards Goal:: Met Goal #3: Pt independent and compliant in HEP. Goal to be met by: 10/06/17 Progress towards Goal:: Progressing Goal #4: . Senior Living Goals Goal #1: Pt knows HEP and to continue ex's to maintain functional level at D/C. Goal to be met by: 10/17/17 Progress towards goal: Partially Met Goal #2: Improved UE functional index improved to equal to/less than 59% impairment. Goal to be met by: 10/17/17 Progress towards goal: No Change Goal #3: Pt to sleep through the night without interruption from R shoulder pain. Goal to be met by: 10/17/17 Progress towards goal: Progressing Goal #4: Right shoulder ROM WFL's to perform selfcare and ADL's. Goal to be met by: 10/17/17 Progress towards goal: No Change Plan PLAN OF CARE EXPIRES ON:: 10/17/17 ORDER # VISITS AND/OR THROUGH DATE: 10/17/17 PLAN: Plan to D/C .
--- NOTE | 2017-10-23 14:27 | RS.OPPTDC ---
Date of Discharge: 10/08/17 Date of Evaluation: 09/22/17 Number of Visits: 6 Treatment Diagnosis: Right shoulder pain, shoulder stiffness, RTC involvement Current Complaints/Gains: Ms. Rajput reports less sorenss and pain at rest. States she continues to have pain with active motion of the right UE. Functional Outcome Measure - G Codes & Severity Modifier G Codes & Modifier: selfcare goal CK. selfcare D/C CL Source of G Code score: based on presentation in department, patient unable to score FOM. Interventions - Exercise/Activities/Manual Therapy Exercises/Activities: NA Manual Therapy: n/a HOME EXERCISE PROGRAM: pendulum ,GENTLE isometrics each direction,AAROM using wand for rowing ,shoulder elevation ,IR/ER - Objective Findings Observations,measurements,etc.: AROM measurements: right shoulder flexion 100 degrees, abduction 80 degrees, ER 52 degrees, IR 40 degrees. All ROM with pain. - Charges Timed Code Treatment Minutes: NA Total Treatment Time: NA Procedures billed for this date of service:: NA Assessment Assessment: Ms. Rajput attend 6 therapy sessions with treatment of modalities and exercises. She reports some decrease in soreness at rest, but she gained no increased functional ROM in the right UE. G codes were based on presentation and she does not appear to have made any progress functionally compared to initial evaluation. Short Term Goals Goal #1: Right shoulder pain decreased to <7/10. Goal to be met by: 10/06/17 Progress towards Goal:: Partially Met Goal #2: Right shoulder flexion AROM to 90 degrees. Goal to be met by: 10/06/17 Progress towards Goal:: Met Goal #3: Pt independent and compliant in HEP. Goal to be met by: 10/06/17 Progress towards Goal:: Progressing Goal #4: . Senior Care Goals Goal #1: Pt knows HEP and to continue ex's to maintain functional level at D/C. Goal to be met by: 10/17/17 Progress towards goal: Partially Met Comments: Pt able to perform some ex's from HEP in available range. Goal #2: Improved UE functional index improved to equal to/less than 59% impairment. Goal to be met by: 10/17/17 Progress towards goal: Not Met Goal #3: Pt to sleep through the night without interruption from R shoulder pain. Goal to be met by: 10/17/17 Progress towards goal: Not Met Goal #4: Right shoulder ROM WFL's to perform selfcare and ADL's. Goal to be met by: 10/17/17 Progress towards goal: Not Met Plan Reason for Discharge:: Lack of Progress
== END 2017-10-08 23:59 ==
PROVIDERS: ATTEND Orthopaedic Surgery
DX: M75.111 Incomplete rotator cuff tear or rupture of right shoulder, not specified as traumatic (principal); M25.511 Pain in right shoulder; M25.611 Stiffness of right shoulder, not elsewhere classified

== ENCOUNTER 2018-01-19 10:36 | Outpatient (POV) | END 2018-01-19 17:00 | LOC: OUTPT 10:36 | PROVIDERS: ATTEND Otolaryngology | DX: H91.90 Unspecified hearing loss, unspecified ear (principal) ==

== ENCOUNTER 2018-09-07 13:00 | Outpatient (RCR) ==
--- NOTE | 2018-08-25 08:56 | RS.OPPTEV2 ---
Date of Note: 08/24/18 Visit #: 1 Number of visits approved by Insurance: n/a Date of Evaluation: 08/24/18 Payer Source: MEDICARE Surgery Performed?: No Treatment Diagnosis: Right shoulder pain, rotator cuff tear, muscle weakness History of Condition/Mechanism of Injury:: pt reports having R shld pain for 3years. pt with no specific injury. pt has received PT in the past for R shld. Prior Level of Function.....Patient was independent with: ADL's, Self Care, Caregiving, Ambulation/Mobility, Community Integration/Access Level of Function: pt independent with ADL's with pain Functional Limitations: Sleep, Self Care, ADL's, Reaching, Pushing, Pulling, Lifting, Carrying Current Subjective/complaints:: pt states that she hopes therapy will help because she doesn't want to have surgery. She reports the R shld hurts with all ROM Treatment Side (optional): Right *Precautions: n/a Medical History Medical History: Arthritis, Cancer (brain cancer ) Medical History Comments:: R foot fx, R hand fx Surgical History Comments:: Brain surgery 1998 due to brain cancer, eye surgery 1987 Smoking Status: Former smoker Hx Home Medications: pt did not bring a list of medicine. Patient's Goals: decrease R shld pain and not have to have surgery. Pain Assessment - Pain Description Pain Location: R shld Pain Description: Sharp, Aching Current Pain Intensity: 0 at rest, 5-6/10 with any ROM Functional Outcome Measure UE Functional Index: 36 - G Codes & Severity Modifier G Codes & Modifier: n/a Source of G Code score: n/a Observation - Observation Inspection: pt with atrophy noted R deltoid. Posture: Forward Head, Rounded Shoulders, Increased Thoracic Kyphosis Handedness: Right Gait - Gait Pattern General Gait Pattern Observation: No Deviations/Normal General Range of Motion: LUE WFL's. BLE WFL's Muscle Strength: LUE 5/5. BLE 5/5 Shoulder ROM: Left WFL's Shoulder Muscle Strength: Left WFL's - Right Shoulder ROM Right Shoulder Flexion: 106 (AAROM 90 AROM) Right Shoulder Abduction: 128 (AAROM) Right Shoulder Internal Rotation: 58 Right Shoulder External Rotation: 54 Right Shoulder ROM Limitations: Soft Tissue Tightness, Muscle Weakness, Pain - Right Shoulder Strength Right Shoulder Flexion: 3- Fair- Right Shoulder Abduction: 3 Fair Right Shoulder Adduction: 3 Fair Right Shoulder External Rotation: 3 Fair Right Shoulder Internal Rotation: 3 Fair - Special Tests Shoulder Empty Can (Supraspinatus) Test: Positive Right Shoulder Yergason's Test: Positive Right Shoulder Speed's Sign Test: Positive Right Acromioclavicular Joint Distraction Test: Positive Right Palpation Palpation Findings: Tenderness, Muscle Guarding Comments:: pt with point tenderness to R AC joint, biceps tendon, supraspinatus with muscle guarding to scapula Sensation - Sensation Right Upper Extremity: Intact/Normal Left Upper Extremity: Intact/Normal Right Lower Extremity: Intact/Normal Left Lower Extremity: Intact/Normal Balance - Sitting Balance Static Sitting Balance: Good Dynamic Sitting Balance: Good - Standing Balance Static Standing Balance: Good Dynamic Standing Balance: Good - Treatment Modality: Ultrasound Parameters/Method Applied: pulsed ultrasound x 7 mins at 1.2 w/cm2 Treatment Area: R shld ac joint Patient Position: Sitting Interventions - Exercise/Activities/Manual Therapy Exercises/Activities: pt performed isometric shld flex, ext, abd, add Manual Therapy: n/a HOME EXERCISE PROGRAM: pt given written HEP including isometric shld flex, ext, abd, add. - Charges Timed Code Treatment Minutes: 51 Total Treatment Time: 59 Procedures billed for this date of service:: dorie mckinley, ultrasound EVALUATION COMPLEXITY LEVEL EVALUATION COMPLEXITY LEVEL: HISTORY: Low, EXAM OF BODY SYSTEMS: Medium, CLINICAL PRESENTATION: Low, CLINICAL DECISION MAKING: Low Assessment Assessment: pt presents with R shld pain with decreased R shld ROM, strength. pt with symptoms suggesting: supraspinatus tear, biceps tendon tear, and AC joint inflammation. Feel pt will benefit from skilled PT for therex for strengthening, and ROM, modalities to decrease inflammation and pain. Patient Education: Home Exercise Program, Education of Plan of Care Rehab Potential: Good Short Term Goals Goal #1: pt independent with initial HEP Goal to be met by: 09/03/18 Goal #2: Right shoulder flexion AROM to 110 degrees, abd AROM 135 Goal to be met by: 09/03/18 Goal #3: Decrease pain with ROM to < 5/10 Goal to be met by: 09/03/18 Goal #4: Improve strenght R shld 3+/5 Goal to be met by: 09/03/18 [facility] Goals Goal #1: pt report able to perform normal household activities w less pain Goal to be met by: 09/17/18 Goal #2: Improve UE functional index to >45 Goal to be met by: 09/17/18 Goal #3: pt with improved posture with decreased scapular anterior rotation Goal to be met by: 09/17/18 Goal #4: Decrease R shld pain < 4/10 Goal to be met by: 09/17/18 Plan - Treatment to be Provided Procedures: Therapeutic Exercises, Therapeutic Activity, Manual Therapy, Patient Education Modalities: Ultrasound/Phonophoresis (pulsed US only), Cryotherapy, Hot Packs - Treatment Plan Frequency: 2 X week Duration: 4 weeks Dates of [facility] Goals: 09/17/18 Expiration date of current Insurance Approval:: n/a - Treatment Code (1) Incomplete tear of right rotator cuff Code(s): M75.111 - INCOMPLETE ROTATR-CUFF TEAR/RUPTR OF R SHOULDER, NOT TRAUMA Qualifiers: Rotator cuff tear trauma status: nontraumatic Qualified Code(s): M75.111 - Incomplete rotator cuff tear or rupture of right shoulder, not specified as traumatic (2) Muscle weakness Code(s): M62.81 - MUSCLE WEAKNESS (GENERALIZED) (3) Pain in joint, shoulder region Code(s): M25.519 - PAIN IN UNSPECIFIED SHOULDER Qualifiers: Laterality: right Qualified Code(s): M25.511 - Pain in right shoulder (4) Shoulder stiffness Qualifiers: Laterality: right Qualified Code(s): M25.611 - Stiffness of right shoulder , not elsewhere classified
--- NOTE | 2018-08-27 16:36 | RS.OPPTDN ---
Subjective Date of Note: 08/27/18 Visit #: 2 Number of visits approved by Insurance: 8 Date of Evaluation: 08/24/18 Payer Source: MEDICARE Treatment Diagnosis: Right shoulder pain, rotator cuff tear, muscle weakness Current Subjective/complaints:: (Patient is 30 mins late for appt. Explained we would abbreviate her session).Patient says she is having a lot of shoulder pain and she hasn't noticed any improvement with u/s yet. She says it hurts to move it in any direction. Reports she does not want to have surgery, so she is hopeful therapy will improve her pain. *Precautions: n/a - Treatment Modality: Ultrasound Parameters/Method Applied: Pulsed @ 20% @ 1.0 w/cm2 x 12 mins to the R shoulder at the supraspinatus tendon and along the mid deltoid Patient Position: Sitting Interventions - Exercise/Activities/Manual Therapy Exercises/Activities: Patient receives PROM to the R UE all directions. Manual isometrics all dir x 5. Performs shoulder shrugs and scapular adduction. Finished with shoulder pulleys x 10 with cues to let the L UE assist the R. Reviewed HeP and diagnosis. Encouraged heat/ice at home for pain control. Total minutes of Exercise: 16 Manual Therapy: n/a HOME EXERCISE PROGRAM: pt given written HEP including isometric shld flex, ext, abd, add. - Charges Timed Code Treatment Minutes: 28 Total Treatment Time: 31 Procedures billed for this date of service:: u/s, ex Assessment: Patient received modified treatment as she was 1/2 hour late. She demo tenderness during light pressure of u/s today and jerky movements during PROM particularly with flex and abd. Soreness also present with pulleys, however, she was able to elevate the R UE to WFL. Patient Education: Education of diagnosis, Body/Joint mechanics, Home Exercise Program, Education of Plan of Care Short Term Goals Goal #1: pt independent with initial HEP Goal to be met by: 09/03/18 Comments:: Educated on and encouraged her to begin Goal #2: Right shoulder flexion AROM to 110 degrees, abd AROM 135 Goal to be met by: 09/03/18 Goal #3: Decrease pain with ROM to < 5/10 Goal to be met by: 09/03/18 Goal #4: Improve strenght R shld 3+/5 Goal to be met by: 09/03/18 [employer] Goals Goal #1: pt report able to perform normal household activities w less pain Goal to be met by: 09/17/18 Goal #2: Improve UE functional index to >45 Goal to be met by: 09/17/18 Goal #3: pt with improved posture with decreased scapular anterior rotation Goal to be met by: 09/17/18 Goal #4: Decrease R shld pain < 4/10 Goal to be met by: 09/17/18 Plan Dates of [facility] [employer] Goals: 09/17/18 Expiration date of current Insurance Approval:: 09/17/18 PLAN: Continue BIW for modalities and therex to the R shoulder to possibly increase mobility and function.
--- NOTE | 2018-08-31 14:29 | RS.OPPTDN ---
Subjective Date of Note: 08/31/18 Visit #: 3 Number of visits approved by Insurance: Reassess at 10th Date of Evaluation: 08/24/18 Payer Source: MEDICARE Treatment Diagnosis: Right shoulder pain, rotator cuff tear, muscle weakness Current Subjective/complaints:: Patient says that she is not feeling any improvement from previous visit, but later admits treatment did lower her pain afterwards for a few hours. She says she had to vacuum her floors for company to come over and caused increased pain to the R shoulder. She says she tries to switch arms, but she is not able to vacuum adequately with the L. *Precautions: n/a - Treatment Modality: Ultrasound Parameters/Method Applied: Pulsed @ 1.2 w/cm2 x 10 mins along the R mid deltoid and anterior shoulder joint Patient Position: Sitting - Heat/Cryotherapy Treatment: Hot Pack (15 mins to the R shoulder in sitting) Interventions - Exercise/Activities/Manual Therapy Exercises/Activities: Patient receives PROM to the R UE all directions. Manual isometrics all dir 2 x 5. Performs shoulder shrugs and scapular adduction. 1# wand for bilateral shoulder flexion x 10, red tband for scap retraction using 1 # wand both in sitting. 1# dumbell for wrist motions and elbow flexion/ extension x 10. Reviewed HeP and diagnosis. Encouraged heat/ice at home for pain control. Total minutes of Exercise: 22 Manual Therapy: n/a HOME EXERCISE PROGRAM: pt given written HEP including isometric shld flex, ext, abd, add. - Charges Timed Code Treatment Minutes: 32 Total Treatment Time: 50 Procedures billed for this date of service:: hp, u/s, ex Assessment: Patient continues with moderate pain to the R shoulder. She has mild temporary pain relief currently with treatment. She has difficulty relaxing during ROM and has discomfort with isometrics pulling away at times. She may benefit from mild reduction in pain and possible strength improvement. Patient Education: Education of diagnosis, Body/Joint mechanics, Home Exercise Program, Education of Plan of Care Patient demonstrates compliance with HEP?: Yes Short Term Goals Goal #1: pt independent with initial HEP Goal to be met by: 09/03/18 Goal #2: Right shoulder flexion AROM to 110 degrees, abd AROM 135 Goal to be met by: 09/03/18 Goal #3: Decrease pain with ROM to < 5/10 Goal to be met by: 09/03/18 Goal #4: Improve strenght R shld 3+/5 Goal to be met by: 09/03/18 Unit Control Worker Goals Goal #1: pt report able to perform normal household activities w less pain Goal to be met by: 09/17/18 Goal #2: Improve UE functional index to >45 Goal to be met by: 09/17/18 Goal #3: pt with improved posture with decreased scapular anterior rotation Goal to be met by: 09/17/18 Goal #4: Decrease R shld pain < 4/10 Goal to be met by: 09/17/18 Plan Dates of Skilled Nursing Goals: 09/17/18 Expiration date of current Insurance Approval:: 09/17/18 PLAN: Patient to continue BIW for modalities and therex to the R shoulder to improve pain and ROM/strength.
--- NOTE | 2018-09-02 10:34 | RS.CXNS ---
Date of scheduled appointment: 09/02/18 Type: No Show
--- NOTE | 2018-09-02 16:27 | RS.OPPTDN ---
Subjective Date of Note: 09/02/18 Visit #: 4 Number of visits approved by Insurance: 8 Date of Evaluation: 08/24/18 Payer Source: MEDICARE Treatment Diagnosis: Right shoulder pain, rotator cuff tear, muscle weakness Current Subjective/complaints:: Patient states her shoulder is feeling a little better. Reports that she can raise her arm a little better. *Precautions: n/a - Treatment Modality: Ultrasound Parameters/Method Applied: Pulsed @ 20% 0.6 w/cm2 x 10 mins along the R upper arm Patient Position: Sitting - Heat/Cryotherapy Treatment: Hot Pack (15 mins to the R shoulder in sitting) Interventions - Exercise/Activities/Manual Therapy Exercises/Activities: Patient receives PROM to the R UE all directions. Manual isometrics all dir 2 x 5. Performs shoulder shrugs and scapular adduction. 1# wand for bilateral shoulder flexion x 10, red tband for scap retraction using 1 # wand both in sitting. 2# dumbell for wrist motions and elbow flexion/ extension x 10. Reviewed HeP and diagnosis. Total minutes of Exercise: 17 Manual Therapy: n/a HOME EXERCISE PROGRAM: pt given written HEP including isometric shld flex, ext, abd, add. - Charges Timed Code Treatment Minutes: 17 Total Treatment Time: 37 Procedures billed for this date of service:: hp, u/s, ex Assessment: Patient relaxing better and able to demo improved Active flexion to ~125 degrees. She appears more fatigued today, slouching in chair with hot pack falling off when preparing for u/s. Speech is slower, but patient verifying she feels fine and no other symptoms warranting further questioning. Patient Education: Body/Joint mechanics, Home Exercise Program, Education of Plan of Care Patient demonstrates compliance with HEP?: Yes Short Term Goals Goal #1: pt independent with initial HEP Goal to be met by: 09/03/18 Progress towards Goal:: Progressing Goal #2: Right shoulder flexion AROM to 110 degrees, abd AROM 135 Goal to be met by: 09/03/18 Progress towards Goal:: Progressing Goal #3: Decrease pain with ROM to < 5/10 Goal to be met by: 09/03/18 Goal #4: Improve strenght R shld 3+/5 Goal to be met by: 09/03/18 [facility] Goals Goal #1: pt report able to perform normal household activities w less pain Goal to be met by: 09/17/18 Goal #2: Improve UE functional index to >45 Goal to be met by: 09/17/18 Goal #3: pt with improved posture with decreased scapular anterior rotation Goal to be met by: 09/17/18 Goal #4: Decrease R shld pain < 4/10 Goal to be met by: 09/17/18 Plan Dates of Director Of Aviation Goals: 09/17/18 Expiration date of current Insurance Approval:: 09/17/18 PLAN: Patient to continue BIW to the R shoulder to improve ROM and strength
--- NOTE | 2018-09-07 15:17 | RS.OPPTDN ---
Subjective Date of Note: 09/07/18 Visit #: 5 Number of visits approved by Insurance: 8 Date of Evaluation: 08/24/18 Payer Source: MEDICARE Treatment Diagnosis: Right shoulder pain, rotator cuff tear, muscle weakness Current Subjective/complaints:: Patient says she did "too much" over the weekend. Reports that she vacuumed and it bothered the R shoulder. Also, she says she is tired from walking up and down her road. *Precautions: n/a - Treatment Modality: Ultrasound Parameters/Method Applied: Pulsed @ 20% 0.6 w/cm2 x 12 mins to the R shoulder Patient Position: Sitting - Heat/Cryotherapy Treatment: Hot Pack (15 mins to the R shoulder in sitting) Interventions - Exercise/Activities/Manual Therapy Exercises/Activities: Patient receives PROM to the R UE all directions. Manual isometrics all dir 2 x 5. Performs shoulder shrugs and scapular adduction. 1# wand for bilateral shoulder flexion x 10 against the wall for proper postural technique, red tband for scap retraction using 1# wand both in standing. 2# dumbell for wrist motions and elbow flexion/extension x 10. Reaching upward and across body for multiple cones seperately, then stacking them to challenge ROM in standing. Reviewed HeP and diagnosis. Total minutes of Exercise: 22 Manual Therapy: n/a HOME EXERCISE PROGRAM: pt given written HEP including isometric shld flex, ext, abd, add. - Charges Timed Code Treatment Minutes: 34 Total Treatment Time: 49 Procedures billed for this date of service:: hp, u/s, ex Assessment: Patient presents with increased R shoulder pain 5-6/10 prior and 7/ 10 after therex. She has had increased tasks at home including vacuuming and walking near her home ~1 mile. She is very tender and sensitive during first half of u/s, often pulling away, but with conversation this drastically decreases. Active flexion is WFL and she is near being able to use the R UE to groom her hair and scratch the L side of her head. She has soreness with resisted shoulder extension with elbow bent. Patient Education: Education of diagnosis, Home Exercise Program, Education of Plan of Care Patient demonstrates compliance with HEP?: Yes Short Term Goals Goal #1: pt independent with initial HEP Goal to be met by: 09/03/18 Progress towards Goal:: Progressing Goal #2: Right shoulder flexion AROM to 110 degrees, abd AROM 135 Goal to be met by: 09/03/18 Progress towards Goal:: Partially Met Comments:: Patient has met Flexion goal Goal #3: Decrease pain with ROM to < 5/10 Goal to be met by: 09/03/18 Goal #4: Improve strenght R shld 3+/5 Goal to be met by: 09/03/18 Progress towards Goal:: Progressing (Patient able to resist to mild isometrics) Fdc Goals Goal #1: pt report able to perform normal household activities w less pain Goal to be met by: 09/17/18 Goal #2: Improve UE functional index to >45 Goal to be met by: 09/17/18 Goal #3: pt with improved posture with decreased scapular anterior rotation Goal to be met by: 09/17/18 Goal #4: Decrease R shld pain < 4/10 Goal to be met by: 09/17/18 Plan Dates of Fdc Goals: 09/17/18 Expiration date of current Insurance Approval:: 09/17/18 PLAN: Patient to continue to work on ROM to the R UE and strength 3 more sessions
== END 2018-09-07 23:59 ==
PROVIDERS: ATTEND Orthopaedic Surgery
DX: M75.111 Incomplete rotator cuff tear or rupture of right shoulder, not specified as traumatic (principal); M62.81 Muscle weakness (generalized); M25.511 Pain in right shoulder; M25.611 Stiffness of right shoulder, not elsewhere classified

== ENCOUNTER 2018-09-16 13:00 | Outpatient (RCR) ==
--- NOTE | 2018-09-09 14:23 | RS.OPPTDN ---
Subjective Date of Note: 09/09/18 Visit #: 6 Number of visits approved by Insurance: 8 Date of Evaluation: 08/24/18 Payer Source: MEDICARE Treatment Diagnosis: Right shoulder pain, rotator cuff tear, muscle weakness Current Subjective/complaints:: Patient says her shoulder seems to be less painful. When I ask her about her pain, she shrugs her R shoulder up and down and lifts her arm without grimace. *Precautions: n/a - Treatment Modality: Ultrasound Parameters/Method Applied: Pulsed @ 20% 0.6 w/cm2 x 10 to the anterior and mid deltoid. Patient Position: Sitting - Heat/Cryotherapy Treatment: Hot Pack (15 mins to the R shoulder in sitting) Interventions - Exercise/Activities/Manual Therapy Exercises/Activities: Patient receives PROM to the R UE all directions. Manual isometrics all dir 2 x 5. Performs shoulder shrugs and scapular adduction. 1# wand for bilateral shoulder flexion x 10 against the wall for proper postural technique, red tband for scap retraction using 1# wand both in standing. 2# dumbell for wrist motions and elbow flexion/extension x 10. Reaching upward and across body for diagonals and then R shoulder IR reaching for the L shoulder. Reviewed HeP and diagnosis. Total minutes of Exercise: 22 Manual Therapy: n/a HOME EXERCISE PROGRAM: pt given written HEP including isometric shld flex, ext, abd, add. - Charges Timed Code Treatment Minutes: 32 Total Treatment Time: 47 Procedures billed for this date of service:: hp, u/s, ex Assessment: Patient demo improved AROM regarding flexion and IR verbally admitting less pain. She continues to have difficulty with vacumming so she has compensated by using the L arm for this chore. She is able to perform all resisted therex with increased tolerance. Soreness and grimacing with terminal range IR when reaching for shoulder. Tenderness remains with light to mild pressure to the anterior shoulder. Patient Education: Education of diagnosis, Body/Joint mechanics, Home Exercise Program, Education of Plan of Care Patient demonstrates compliance with HEP?: Yes Short Term Goals Goal #1: pt independent with initial HEP Goal to be met by: 09/03/18 Progress towards Goal:: Progressing Goal #2: Right shoulder flexion AROM to 110 degrees, abd AROM 135 Goal to be met by: 09/03/18 Progress towards Goal:: Partially Met Goal #3: Decrease pain with ROM to < 5/10 Goal to be met by: 09/03/18 Progress towards Goal:: Progressing Goal #4: Improve strenght R shld 3+/5 Goal to be met by: 09/03/18 Progress towards Goal:: Met (Patient able to resist to mild isometrics) Manager Balance Goals Goal #1: pt report able to perform normal household activities w less pain Goal to be met by: 09/17/18 Goal #2: Improve UE functional index to >45 Goal to be met by: 09/17/18 Goal #3: pt with improved posture with decreased scapular anterior rotation Goal to be met by: 09/17/18 Goal #4: Decrease R shld pain < 4/10 Goal to be met by: 09/17/18 Plan Dates of Manager Balance Goals: 09/17/18 Expiration date of current Insurance Approval:: 09/17/18 PLAN: Continue BIW next week for the R shoulder
--- NOTE | 2018-09-28 16:45 | RS.OPPTDN ---
Subjective Date of Note: 09/16/18 Visit #: 8 Number of visits approved by Insurance: 09/17/18 Date of Evaluation: 08/24/18 Payer Source: MEDICARE Treatment Diagnosis: Right shoulder pain, rotator cuff tear, muscle weakness Current Subjective/complaints:: Patient says her shoulder is not as painful today. She says it seems to be getting better. *Precautions: n/a - Treatment Modality: Ultrasound Parameters/Method Applied: Pulsed @ 0.6 w/cm2 20% x 11 mins Patient Position: Sitting - Heat/Cryotherapy Treatment: Hot Pack (15 mins to the R shoulder in sitting) Interventions - Exercise/Activities/Manual Therapy Exercises/Activities: Patient receives PROM to the R UE all directions. Manual isometrics all dir 2 x 5. Performs shoulder shrugs and scapular adduction. 1# wand for bilateral shoulder flexion x 10 against the wall for proper postural technique, red tband for scap retraction using 1# wand both in standing. 2# dumbell for wrist motions and elbow flexion/extension x 10. Reaching upward and across body for diagonals and then R shoulder IR reaching for the L shoulder. Assisted pt with UE Functional Scale. Reviewed HeP and diagnosis. Total minutes of Exercise: 21 Manual Therapy: n/a HOME EXERCISE PROGRAM: pt given written HEP including isometric shld flex, ext, abd, add. - Charges Timed Code Treatment Minutes: 32 Total Treatment Time: 47 Procedures billed for this date of service:: hp, ex, u/s Assessment: Patient chin improved UE Functional Score of 63/80 or 22% impairment compared to 36/80 at [facility]. She demo improved Active Flexion to 122 degrees and ABD to 113 degrees. She admits improved pain, but still seems to be temporary. Tenderness upon mild palpation is somewhat less especially during u/s (demo less sensitivity). Patient Education: Education of diagnosis, Home Exercise Program, Home Safety, Education of Plan of Care Patient demonstrates compliance with HEP?: Yes Short Term Goals Goal #1: pt independent with initial HEP Goal to be met by: 09/03/18 Progress towards Goal:: Met Goal #2: Right shoulder flexion AROM to 110 degrees, abd AROM 135 Goal to be met by: 09/03/18 Progress towards Goal:: Partially Met Goal #3: Decrease pain with ROM to < 5/10 Goal to be met by: 09/03/18 Progress towards Goal:: Met Goal #4: Improve strenght R shld 3+/5 Goal to be met by: 09/03/18 Progress towards Goal:: Met (Patient able to resist to mild isometrics) Special Equipment Technician Goals Goal #1: pt report able to perform normal household activities w less pain Goal to be met by: 09/17/18 Progress towards goal: Progressing Goal #2: Improve UE functional index to >45 Goal to be met by: 09/17/18 Progress towards goal: Met Comments: 63/80 Goal #3: pt with improved posture with decreased scapular anterior rotation Goal to be met by: 09/17/18 Progress towards goal: Progressing Goal #4: Decrease R shld pain < 4/10 Goal to be met by: 09/17/18 Progress towards goal: Progressing Plan Dates of Special Equipment Technician Goals: 09/17/18 Expiration date of current Insurance Approval:: 09/17/18 PLAN: Patient has completed POC with progression towards goals. Strongly encouraged to continue HEP and pain control using heat or ice at home.
== END 2018-10-08 23:59 ==
PROVIDERS: ATTEND Orthopaedic Surgery
DX: M75.111 Incomplete rotator cuff tear or rupture of right shoulder, not specified as traumatic (principal)

== ENCOUNTER 2018-10-15 11:53 | Outpatient (CLI) | payer OTHER ==
--- NOTE | 2018-10-15 13:41 | MRI ---
EXAM: MRI right shoulder without contrast. HISTORY: Right shoulder pain. No right shoulder surgery reported.. TECHNIQUE: Using a local coil on a high field strength magnet multiplanar multisequence MRI was perf ormed of the right shoulder without intravenous or intra-articular gadolinium contrast. COMPARISON: MRI right shoulder 07/27/2017. FINDINGS: I do not have prior radiographs of the right shoulder available for comparison at the time of this dictation. A Type I I acromion. Coracoacromial ligament/arch intact without thickening. Marked right acromiocl avicular joint degenerative arthrosis/osteoarthrosis with trace effusion, capsular/ligamentous hypert rophy and some prominent inferior osteophytic spurring. Deltoid musculature shows fatty infiltration . Trace fluid subacromial/subdeltoid bursa. Muscle bulk of the rotator cuff shows relative atrophy. Some fatty infiltration. Diffuse supraspina tus tendinosis. There is again noted high-grade near full-thickness tearing of the supraspinatus whi ch is full width. This is most evident over the far anterior insertion over a 10 mm area where there is underlying extensive bone remodeling and degenerative cyst formation. Posterior to this level th ere is diffuse infraspinatus tendinosis. Posterior inferior intact teres minor tendon fibers. Anter ior partial thickness rim rent/articular sided tearing over more central to cranial subscapularis fib ers. There remains some medial subluxation long head of the biceps tendon with tendinosis and questi on partial thickness tearing remaining.. Moderate to marked right glenohumeral joint degenerative arthrosis/osteoarthrosis. Marginal osteophy te formation. Subchondral remodeling with cyst formation over the more superior right glenoid. Righ t glenohumeral joint effusion. Question persistent synovitis. Tiny loose bodies not excluded.. Que stion at least degeneration of the posterior superior right glenoid labrum on this non-arthrographic examination.. IMPRESSION: Marked right acromioclavicular joint degenerative arthrosis/osteoarthrosis with trace ef fusion and some prominent inferior osteophytic spurring. Rotator cuff muscle bulk atrophy. Fatty infiltration. Diffuse supraspinatus tendinosis. Again note d high-grade near full-thickness tearing which is full width and most evident over the far anterior i nsertion. Trace fluid subacromial/subdeltoid bursa may reflect an overlying degree bursitis and/or b e sequelae of prior shoulder injection. A full-thickness communicating component could have this negro earance. Diffuse infraspinatus tendinosis. Anterior partial thickness rim rent/articular sided tearing over more central to cranial subscapulari s fibers. There remains some medial subluxation long head of the biceps tendon with tendinosis and q uestion partial thickness tearing remaining. Moderate to markedly severe right glenohumeral joint degenerative arthrosis/osteoarthrosis. Right gl enohumeral joint effusion. Question persistent synovitis. Tiny loose bodies not excluded. Question at least degeneration of the posterior-superior right glenoid labrum on this non-arthrograph ic examination. Recommendation is obtainment and correlation with plain film radiographs of the right shoulder as non e are available for comparison at the time of this dictation.
== END 2018-10-15 11:54 | disposition home or self-care (01) ==
LOC: RAD 11:53
PROVIDERS: ATTEND Physician Assistant
DX: M19.011 Primary osteoarthritis, right shoulder (principal); M25.511 Pain in right shoulder; M75.111 Incomplete rotator cuff tear or rupture of right shoulder, not specified as traumatic